=== PATIENT | male | born 1990 | race Caucasian/White ===

== ENCOUNTER 2017-06-28 11:15 | Emergency (ER) | payer OTHER, MEDICAID ==
[~2017-06-28] VITALS: Ht 172.7 cm; Wt 144.8 kg
[2017-06-28 11:56] VITALS: BP 109/70
--- NOTE | 2017-06-28 12:01 | NUR ---
AFTER FLU SWAB SAMPLE TAKEN, PT AMBULATES BACK TO THE LOBBY
--- NOTE | 2017-06-28 12:15 | NUR ---
ASSUMED PATIENT CARE, CONCUR WITH TRIAGE ASSESSMENT.
--- NOTE | 2017-06-28 13:00 | NUR ---
DISPO AND MEDICAL DECISION MAKING, DC HOME WITH INSTRUCTIONS UNDERSTOOD BY PATIENT WELL, VSWNL, NO DISTRESS.
[2017-06-28 13:38] VITALS: BP 122/54
== END 2017-06-28 13:00 | disposition home or self-care (01) ==
LOC: MED 11:15
DX: J06.9 Acute upper respiratory infection, unspecified (principal)
CPT/HCPCS: 99282

== ENCOUNTER 2018-11-15 09:40 | Emergency (ER) | payer OTHER, MEDICAID ==
[~2018-11-15] VITALS: Ht 175.3 cm; Wt 140.6 kg
[2018-11-15 09:54] VITALS: BP 139/90
--- NOTE | 2018-11-15 10:14 | NUR ---
PT BIB SELF TO THE ED WITH THE CHIEF C/O COLD SYMPTOMS, SORE THROAT X TODAY. DENIES ANY RECENT FEVER. DENIES N/VD. LUNGS CLEAR ON AUSCULTATION. BREATHING NORMALLY SPO2 97% IN ROOM AIR. TOOK NYQUIL YESTERDAY. DENIES ANY MEDICAL HX. DENIES PAIN AT THIS TIME.
--- NOTE | 2018-11-15 10:23 | NUR ---
PT BEING EVALUATED BY ER AT THIS TIME.
[2018-11-15] MEDS ORDERED: ALBUTEROL SULFATE/IPRATROPIU 3 ML SOL IH ONE (10:45)
[2018-11-15] MEDS ORDERED: cefTRIAXone 1,000 MG in LIDOCAINE 1% ***ER ONLY *** 2.1 ML IM ONE (10:45)
[2018-11-15] MEDS ORDERED: DEXAMETHASONE 10 MG/ML VIAL IM ONE (10:45)
[2018-11-15] MEDS ORDERED: cefTRIAXone 1,000 MG VIAL ONE (11:00)
[2018-11-15] MEDS ORDERED: LIDOCAINE MPF 1% 5mL VIAL ONE ×2 (11:03→11:06)
[2018-11-15 11:41] VITALS: BP 150/97
--- NOTE | 2018-11-15 11:41 | NUR ---
Patient discharged with v/s stable. Written and verbal after care instructions given and explained. Patient alert, oriented and verbalized understanding of instructions. Ambulatory with steady gait. All questions addressed prior to discharge. ID band removed. Patient advised to follow up with PMD. Rx of AZITHROMYCIN, PREDNISONE, PROMETHAZINE given. Patient educated on indication of medication including possible reaction and side effects. Opportunity to ask questions provided and answered.
== END 2018-11-15 11:41 | disposition home or self-care (01) ==
LOC: MED 09:40
DX: J02.9 Acute pharyngitis, unspecified (principal)
CPT/HCPCS: 94640; 96372; 99283; J0696; J1100; J2001; J7620